=== PATIENT | male | born 1985 | race Caucasian/White ===

== ENCOUNTER 2022-01-04 12:21 | Emergency (ER) | payer BC ==
[2022-01-04] MEDS ORDERED: Promethazine 25 MG/ML SDV IM ONE (12:32)
[2022-01-04] MEDS ORDERED: HYDROmorphone 2 MG/ML SDV IM ONE (12:32)
[2022-01-04] MEDS ORDERED: Diphtheria,Pertussis(Acell),Tetanus Vaccine 0.5 ML Syringe IM ONE (14:28)
[2022-01-04 15:59] VITALS: BP 132/68; PULSE 70
== END 2022-01-04 15:45 | disposition home or self-care (01) ==
LOC: FB.ED 12:21
DX: S80.01XA Contusion of right knee, initial encounter (principal); M23.91 Unspecified internal derangement of right knee; M10.9 Gout, unspecified; Z79.899 Other long term (current) drug therapy; Z23 Encounter for immunization; W22.09XA Striking against other stationary object, initial encounter
CPT/HCPCS: 73552-RT; 73562-RT; 90471; 90715; 96372; 99283; 99283-25; J1170; J2550